=== PATIENT | male | born 1970 | race Caucasian/White ===

== ENCOUNTER 2020-11-17 10:16 | Emergency (ER) | payer OTHER ==
[~2020-11-17] VITALS: Ht 177.8 cm; Wt 83.9 kg
--- NOTE | 2020-11-17 10:26 | NUR ---
PT BIB60 FROM THE [facility]REETS FELLING SUICIDAL. +PLAN TO CUT SELF. PT PRESENTS W/ BLE SELF INFLICTED LACERATIONS. PT STATES BEEN OFF OF HIS MEDICATION AND IS WILLING TO GO TO A PSYCHIATRIC FACILITY. PT PLACED ON 5150 HOLD BY NICA. PT IS AAOX4. JEEVAN FAJARDO. AWAITING MD ALDANA. Addendum: 11/17/20 at 1048 by LYNDON PT IS NOT 5150 HOLD.
--- NOTE | 2020-11-17 10:41 | NUR ---
DR PIERRE AT BEDSIDE FOR EVAL.
--- NOTE | 2020-11-17 10:45 | NUR ---
THIERRY COLLECTED AND SENT TO THE LAB
[2020-11-17] MEDS ORDERED: HALOPERIDOL LACTATE INJ 5 MG/ML VIAL ONE (10:46)
[2020-11-17] MEDS ORDERED: LORAZEPAM INJ 2 MG/ML VIAL ONE (10:47)
[2020-11-17] MEDS ORDERED: HALOPERIDOL LACTATE INJ 5 MG/ML VIAL IM ONE (11:00)
[2020-11-17] MEDS ORDERED: LORAZEPAM INJ 2 MG/ML VIAL IM ONE (11:00)
--- NOTE | 2020-11-17 11:01 | NUR ---
COVID SWAB DONE AND SENT TO THE LAB
[2020-11-17 11:10] LABS: BASOPHILS # (AUTO) 0.1 K/uL (0.0-0.2); BASOPHILS % (AUTO) 1.3 % (0.0-2.0); EOSINOPHILS % (AUTO) 2.5 % (0.0-6.0); HEMATOCRIT 44 % (39-51); HEMOGLOBIN 15.1 g/dL (13.5-17.5); LYMPHOCYTES # (AUTO) 1.9 K/uL (0.8-4.8); MEAN CORPUSCULAR HGB CONC 35 g/dl (31.0-36.0); MEAN CORPUSCULAR VOLUME 93 fL (80-96); MONOCYTES # (AUTO) 0.8 K/uL (0.1-1.30); MONOCYTES % (AUTO) 11.4 % (2.0-12.0); NEUTROPHILS # (AUTO) 4.2 K/uL (1.8-8.9); NEUTROPHILS % (AUTO) 57.8 % (43.0-81.0); PLATELET COUNT (AUTO) 290 K/uL (150-450); WHITE BLOOD COUNT (AUTO) 7.2 K/uL (4.3-11.0)
[2020-11-17 11:26] LABS: BILIRUBIN,URINE NEGATIVE (NEGATIVE); COLOR,URINE YELLOW (YELLOW); LEUKOCYTE ESTERASE ,URINE NEGATIVE (NEGATIVE); NITRITE, URINE NEGATIVE (NEGATIVE); PROTEIN,URINE NEGATIVE (NEGATIVE); UGLUCOSE NEGATIVE (NEGATIVE)
[2020-11-17] MEDS ORDERED: BACITRACIN ZINC OINT PACKET 1 EA PACKET TP ONE (11:30)
[2020-11-17] MEDS ORDERED: TDAP [DIPH/PERTUSSIS/TET] 0.5 ML VIAL IM ONE ×2 (11:30)
[2020-11-17 11:34] LABS: ALANINE AMINOTRANSFERASE 175 U/L (12-78); ALBUMIN 4.2 g/dL (3.4-5.0); ALCOHOL, BLOOD 95 mg/dL (0-0); ALKALINE PHOSPHATASE 88 U/L (46-116); ASPARTATE AMINOTRANSFERASE 69 U/L (15-37); BILIRUBIN,DIRECT 0.3 mg/dL (0.0-0.2); BILIRUBIN,TOTAL 0.8 mg/dL (0.2-1.0); CALCIUM, SERUM 8.7 mg/dL (8.5-10.1); CARBON DIOXIDE 25 mmol/L (21-32); CHLORIDE 104 mmol/L (98-107); CREATININE 0.9 mg/dL (0.6-1.3); GLUCOSE 97 mg/dL (74-106); POTASSIUM 3.4 mmol/L (3.5-5.1); SODIUM SERUM 140 mmol/L (136-145); TOTAL PROTEIN, SERUM 7.6 g/dL (6.4-8.2)
[2020-11-17 11:51] LABS: UREA NITROGEN, BLOOD 9 mg/dL (7-18)
[2020-11-17 12:02] LABS: BACTERIA,URINE None seen /HPF (None Seen); RBC,URINE 0-2 /HPF (0-2); SQUAMOUS EPITHELIAL CELL,UR Rare /HPF (None Seen); WBC,URINE 0-2 /HPF (0-3)
[2020-11-17 12:07] LABS: ACETAMINOPHEN < 10 ug/ml (10-30)
--- NOTE | 2020-11-17 14:45 | NUR ---
The patient sleeping in bed. Responsive to verbal stimuli. VSS.
[2020-11-17] MEDS ORDERED: POTASSIUM CHLORIDE 20 MEQ TAB.PRT.SR PO ONE ×2 (18:15→18:30)
--- NOTE | 2020-11-17 20:41 | NUR ---
PER ERIN, MISSING POTASSIUM. ALSO, FOLLOW UP IF HE IS STABLE. REQUESTING VITALS.
[2020-11-17 20:42] VITALS: BP 130/68
--- NOTE | 2020-11-17 22:27 | NUR ---
INTAKE CALLED: PATIENT ACCEPTED TO [facility] UNDER DR DANIEL. NURSE REPORT: [phone]
--- NOTE | 2020-11-17 22:41 | NUR ---
[facility] CALLED FOR TRANSPORT. ETA [id number]
--- NOTE | 2020-11-18 00:08 | NUR ---
REPORT GIVEN TO MICHAEL CARUSO AT [facility].
--- NOTE | 2020-11-18 01:15 | NUR ---
[facility] AT BEDSIDE FOR TRANSPORT TO [facility]
--- NOTE | 2020-11-18 09:04 | NUR ---
SS consult received over the weekend for psychosis, drug use, harm to self. Pt. has now departed to [facility] for psychiatric Tx.
== END 2020-11-18 01:15 ==
LOC: ER 10:21
DX: F15.150 Other stimulant abuse with stimulant-induced psychotic disorder with delusions (principal); F15.151 Other stimulant abuse with stimulant-induced psychotic disorder with hallucinations; R45.851 Suicidal ideations; R74.01 Elevation of levels of liver transaminase levels; Z59.0 Homelessness; F19.10 Other psychoactive substance abuse, uncomplicated; I10 Essential (primary) hypertension; F31.9 Bipolar disorder, unspecified; S81.812A Laceration without foreign body, left lower leg, initial encounter; S81.811A Laceration without foreign body, right lower leg, initial encounter; X78.8XXA Intentional self-harm by other sharp object, initial encounter; Y92.89 Other specified places as the place of occurrence of the external cause; Z20.822 Contact with and (suspected) exposure to COVID-19; F43.10 Post-traumatic stress disorder, unspecified; F20.9 Schizophrenia, unspecified
CPT/HCPCS: 36415; 80048; 80076; 80143; 80307; 80320; 81001; 85025; 87426; 90471; 90715; 96372 ×2; 99285; A6253; C9803; J1630; J2060; G0480